=== PATIENT | female | born 1960 | race Caucasian/White ===

== ENCOUNTER 2022-01-21 05:22 | Inpatient (IN) | payer BC ==
[2022-01-14 14:39] LABS: BASOPHILS % (AUTO) 0.3 % (0-1); EOSINOPHILS # (AUTO) 0.1 X10'3 (0-0.9); EOSINOPHILS % (AUTO) 1.4 % (0-6); LYMPHOCYTES # (AUTO) 1.6 X10'3 (1.1-4.8); LYMPHOCYTES % (AUTO) 27.5 % (21-51); MEAN CORPUSCULAR HEMOGLOBIN 27.7 PG (27.0-31.0); MEAN CORPUSCULAR HGB CONC 32.4 g/dL (33.0-36.5); MEAN CORPUSCULAR VOLUME 85.6 FL (78-98); MEAN PLATELET VOLUME 7.1 FL (7.4-10.4); MONOCYTES # (AUTO) 0.5 X10'3 (0-0.9); MONOCYTES % (AUTO) 9.1 % (2-12); NEUTROPHILS # (AUTO) 3.5 X10'3 (1.8-7.7); NEUTROPHILS % (AUTO) 61.7 % (42-75); PRE OP PLATELET COUNT 257 X10'3 (140-440); RED BLOOD COUNT 4.32 X10'6 (4.20-5.60); RED CELL DISTRIBUTION WIDTH 14.9 % (11.5-14.5)
[2022-01-14 14:41] LABS: CLARITY,URINE CLEAR (Clear); COLOR,URINE YELLOW (Yellow); GLUCOSE, URINE NEGATIVE (Neg); KETONES,URINE TRACE mg/dl (Neg); LEUKOCYTE ESTERASE ,URINE NEGATIVE (Neg); NITRITES, URINE NEGATIVE (Neg); OCCULT BLOOD,URINE NEGATIVE (Neg); PH,URINE 5.5 (4.8-8.0); PROTEIN,URINE NEGATIVE (Neg); UROBILINOGEN,URINE 0.2 E.U/dL (0.2-1.0)
[2022-01-14 14:43] LABS: UA COLLECTION TYPE CLN CATCH MIDSTREAM
[2022-01-14 14:54] LABS: ALBUMIN/GLOBULIN RATIO 1.1 (1.1-1.5); ALKALINE PHOSPHATASE 115 IU/L (46-116); BLOOD UREA NITROGEN 17 MG/DL (7-18); BUN/CREATININE RATIO 18.5 (6.6-38.0); CALCIUM 9.6 MG/DL (8.5-10.1); CHLORIDE 105 MMOL/L (99-107); CREATININE 0.92 MG/DL (0.40-0.90); PRE OP ALT 26 U/L (30-65); PRE OP ANION GAP 8 (8-16); PRE OP AST 26 U/L (10-37); PRE OP BILIRUB, TOTAL 0.4 MG/DL (0.0-1.0); PRE OP GLUCOSE 94 MG/DL (70-104); PRE OP POTASSIUM 3.7 MMOL/L (3.4-5.1); PRE OP SODIUM 141 MMOL/L (135-145); TOTAL CARBON DIOXIDE 28.2 MMOL/L (24-32); TOTAL PROTEIN 7.6 G/DL (6.4-8.2); eGFR 61 ML/MIN
[~2022-01-21] VITALS: Ht 162.6 cm; Wt 70.1 kg
[2022-01-21] VITALS (20 sets, daily range): BP systolic 102–160; BP diastolic 58–96
[~2022-01-21 05:22] MED LIST: SERT-434 PO; ringers solution, lacted 1,000 ML IV SCH
[2022-01-21] MEDS ORDERED: ceFAZolin inj. 2,000 MG in dextrose 5%-water 100 ML IV ONE (05:30)
[2022-01-21] MEDS ORDERED: famotidine 20mg tablet PO ONE (05:30)
[2022-01-21] MEDS ORDERED: BUPIVAcaine/PF 2.5mg/ml (0.25%) 10ml vial ONE (06:39)
[2022-01-21] MEDS ORDERED: BUPIVAcaine/PF 5 mg/ml 10ml ONE (07:19)
[2022-01-21] MEDS ORDERED: BUPIVACAINE liposomal/PF 13.3 MG/ML vial IM ONE (07:20)
[2022-01-21] MEDS ORDERED: midazolam 1 mg/ML 2ml injection ONE (07:56)
[2022-01-21] MEDS ORDERED: ringers solution, lacted 1,000 ML IV SCH (08:25)
[2022-01-21] MEDS ORDERED: morphine 2 MG/ML inj. syringe IV PRN (08:25)
[2022-01-21] MEDS ORDERED: HYDROmorphone/PF 0.2 MG/ML SYRINGE IV PRN ×2 (08:25)
[2022-01-21] MEDS ORDERED: proCHLORperazine 10 MG/2 ml inj IV PRN (08:25)
[2022-01-21] MEDS ORDERED: labetalol 20mg/4ml (5mg/ml) syringe IV PRN (08:25)
[2022-01-21] MEDS ORDERED: ketorolac trometh. 30mg/ml inj. IV ONE (08:25)
[2022-01-21] MEDS ORDERED: ondansetron/PF 4mg/2ml inj IV PRN ×2 (08:25→12:30)
[2022-01-21] MEDS ORDERED: meperidine/PF 25mg/ml syringe IV PRN (08:25)
[2022-01-21] MEDS ORDERED: hydrALAZINE 20mg/ml inj. IV PRN (08:25)
[2022-01-21] MEDS ORDERED: acetaminophen 1,000mg/100ml IV 100 ML IV PRN (08:25)
[2022-01-21] MEDS ORDERED: fentaNYL /PF 50mcg/ml 5ml ampule ONE (08:26)
[2022-01-21] MEDS ORDERED: dexamethasone sod phosphate 4mg/ml inj. ONE (08:52)
[2022-01-21] MEDS ORDERED: LIDOcaine 2% (20mg/ml) 5ml vial ONE (08:52)
[2022-01-21] MEDS ORDERED: ondansetron/PF 4mg/2ml inj ONE (08:52)
[2022-01-21] MEDS ORDERED: propofol inj 20 ML IV ONE (08:52)
[2022-01-21] MEDS ORDERED: rocuronium 10mg/ml inj IV ONE ×2 (08:52→11:24)
[2022-01-21] MEDS ORDERED: glycopyrrolate 0.2mg/ml inj ONE (11:23)
[2022-01-21] MEDS ORDERED: neostigmine methylsulfate 1 MG/ML 10ml vial ONE (11:23)
--- NOTE | 2022-01-21 11:37 | NUR ---
RECEIVED PT FROM SURGERY SLEEPY, VITAL SIGNS STABLE, REPORT BY ANESTHESIA MD AND OR NURSE.
--- NOTE | 2022-01-21 12:00 | NUR ---
ABDOMINAL BINDER X [address], LOOSEN AND WOUNDS CHECKED, NO BLEEDING NOTED, PT MEDICATED FOR PAIN WITH GOOD RESULTS
[2022-01-21] MEDS: morphine 4 MG/ML inj SYRINge IV PRN ×2 (12:13→12:20)
--- NOTE | 2022-01-21 12:47 | NUR ---
REPORT GIVEN TO [facility]. PT TRANSPORTED TO FLOOR VIA STRETCHER AND TRASFERRED TO HOSPITAL BED UPON ARRIVAL TO ROOM, ABDOMINAL BINDERS X [address], NO SIGNS OF BLEEDING NOTED, PTS PAIN IS NOW UNDER CONTROL, SISTER NOTIFIED OF PTS TRANSFER OUT OF THE PACU DEPARTMENT
[2022-01-21] MEDS: HYDROcodone/acetaminophen 10/325mg tab PO PRN ×2 (16:20→21:03)
[2022-01-21] MEDS: sod chloride 0.9% 10ml flush syringe IV SCH (16:21)
--- NOTE | 2022-01-21 18:00 | NUR ---
Report received from Mignon perez care of pt.
--- NOTE | 2022-01-21 18:23 | NUR ---
Problems reprioritized. Patient report given, questions answered & plan of care reviewed with Reyna TAVERA.
[2022-01-22] MEDS: HYDROcodone/acetaminophen 10/325mg tab PO PRN ×6 (00:46→21:02)
[2022-01-22 02:00] VITALS: BP 103/52
[2022-01-22 06:00] VITALS: BP 116/56
--- NOTE | 2022-01-22 06:09 | NUR ---
Report to Cintia TAVERA.
[2022-01-22] MEDS: sod chloride 0.9% 10ml flush syringe IV SCH ×3 (08:28→15:26)
[2022-01-22 10:55] VITALS: BP 88/38
[2022-01-22 10:56] VITALS: BP 90/52
[2022-01-22 18:00] VITALS: BP 116/52
--- NOTE | 2022-01-22 18:21 | NUR ---
Problems reprioritized. Patient report given, questions answered & plan of care reviewed with AVI TAVERA.
--- NOTE | 2022-01-22 18:30 | NUR ---
Patient in room [facility]. I have received report from JORGE TAVERA and had the opportunity to ask questions and assume patient care.
[2022-01-22 22:00] VITALS: BP 105/55
[2022-01-23] MEDS: HYDROcodone/acetaminophen 10/325mg tab PO PRN ×4 (01:14→15:54)
--- NOTE | 2022-01-23 06:23 | NUR ---
Problems reprioritized. Patient report given, questions answered & plan of care reviewed with JORGE TAVERA.
[2022-01-23 07:00] VITALS: BP 136/75
[2022-01-23] MEDS: sod chloride 0.9% 10ml flush syringe IV SCH ×3 (07:04→15:32)
[2022-01-23 11:00] VITALS: BP 124/52
--- NOTE | 2022-01-23 16:21 | NUR ---
PATIENT STABLE AND APPROPRIATE FOR DISCHARGE HOME. IV REMOVED. ALL BELONGINGS TAKEN FROM ROOM. DRESSING CHANGED AND ADDITIONAL DRESSING SUPPLIES GIVEN TO PATIENT. ALL DISCHARGE INSTRUCTIONS AND EDUCATION GIVEN AND REVIEWED WITH PATIENT, ALL QUESTIONS ANSWERED. NEW RX CALLED INTO [facility] IN [place] BY DR. ARAUJO STAFF.
== END 2022-01-23 16:19 | disposition home or self-care (01) | DRG 354 ==
LOC: PAS 05:22 → PAS IN 12:34 → SUR 3N 13:07 → OBSVTOIN 01-22 15:00
PROVIDERS: ADMIT Surgery; ATTEND Surgery
PROC: 0WPF4JZ Removal of Synthetic Substitute from Abdominal Wall, Percutaneous Endoscopic Approach (ICD-10-PCS; 2022-01-21)
PROC: 0WQF4ZZ Repair Abdominal Wall, Percutaneous Endoscopic Approach (ICD-10-PCS; principal; 2022-01-21 07:48)
DX: K42.9 Umbilical hernia without obstruction or gangrene (principal); K56.600 Partial intestinal obstruction, unspecified as to cause; K56.7 Ileus, unspecified; Z86.19 Personal history of other infectious and parasitic diseases; Z98.84 Bariatric surgery status
CPT/HCPCS: Z7506; Z7508; 36415; 80053; 81003; 82948; 85025; 93005; A4215; A4618; A6222; A6253; A6449; A7000; C9290; G0378; J0690; J1100; J1885; J2250; J2270; J2405; J2704; J2710; J3010; J3490; J7060; J7120; J7121

== ENCOUNTER 2023-05-06 05:27 | Day surgery (SDC) | payer MEDICARE, BC ==
[2023-04-29 10:25] LABS: BASOPHILS % (AUTO) 0.4 % (0-1); EOSINOPHILS # (AUTO) 0.1 X10'3 (0-0.9); EOSINOPHILS % (AUTO) 1.2 % (0-6); LYMPHOCYTES # (AUTO) 1.2 X10'3 (1.1-4.8); LYMPHOCYTES % (AUTO) 20.6 % (21-51); MEAN CORPUSCULAR HEMOGLOBIN 25.3 PG (27.0-31.0); MEAN CORPUSCULAR HGB CONC 32.1 g/dL (33.0-36.5); MEAN CORPUSCULAR VOLUME 78.8 FL (78-98); MEAN PLATELET VOLUME 7.7 FL (7.4-10.4); MONOCYTES # (AUTO) 0.5 X10'3 (0-0.9); MONOCYTES % (AUTO) 8.5 % (2-12); NEUTROPHILS # (AUTO) 4.1 X10'3 (1.8-7.7); NEUTROPHILS % (AUTO) 69.3 % (42-75); PRE OP HEMATOCRIT 34.5 % (35.0-45.0); PRE OP HEMOGLOBIN 11.1 g/dL (12.0-16.0); PRE OP PLATELET COUNT 284 X10'3 (140-440); PRE OP WHITE BLOOD COUNT 5.9 10'3 (4.8-10.8); RED BLOOD COUNT 4.38 X10'6 (4.20-5.60); RED CELL DISTRIBUTION WIDTH 16.3 % (11.5-14.5)
[2023-04-29 11:40] LABS: ALBUMIN 3.9 G/DL (3.4-5.0); ALBUMIN/GLOBULIN RATIO 1.1 (1.1-1.5); ALKALINE PHOSPHATASE 94 IU/L (46-116); BLOOD UREA NITROGEN 21 MG/DL (7-18); BUN/CREATININE RATIO 22.6 (10.0-20.0); CALCIUM 8.8 MG/DL (8.5-10.1); CHLORIDE 106 MMOL/L (99-107); CREATININE 0.93 MG/DL (0.40-0.90); PRE OP ALT 29 U/L (30-65); PRE OP ANION GAP 10 (8-16); PRE OP AST 28 U/L (10-37); PRE OP BILIRUB, TOTAL 0.7 MG/DL (0.0-1.0); PRE OP GLUCOSE 97 MG/DL (70-104); PRE OP POTASSIUM 4.1 MMOL/L (3.4-5.1); PRE OP SODIUM 142 MMOL/L (135-145); TOTAL CARBON DIOXIDE 26.3 MMOL/L (24-32); TOTAL PROTEIN 7.4 G/DL (6.4-8.2); eGFR 61 ML/MIN
[~2023-05-06] VITALS: Ht 160 cm; Wt 70.0 kg
[2023-05-06] VITALS (12 sets, daily range): BP systolic 120–164; BP diastolic 74–100; PULSE 82–105; RESP 13–18; TEMP 97.7; O2SAT 95–100
[~2023-05-06 05:27] MED LIST changes: +ASPI81TA52 PO; -ringers solution, lacted 1,000 ML IV SCH
[2023-05-06] MEDS: cefazolin 2gm/D5W 100mL 100 ML IV ONE (05:55)
[2023-05-06] MEDS: famotidine 20mg tablet PO ONE (06:03)
[2023-05-06] MEDS: ringers solution, lacted 1,000 ML IV SCH (06:04)
[2023-05-06] MEDS ORDERED: sevoflurane 250ml liquid IH ONE (07:22)
[2023-05-06] MEDS ORDERED: glycopyrrolate 0.2mg/ml inj ONE (07:22)
[2023-05-06] MEDS ORDERED: dexamethasone sod phosphate 10mg/ml inj ONE (07:22)
[2023-05-06] MEDS ORDERED: neostigmine methylsulfate 1 MG/ML 10ml vial ONE (07:22)
[2023-05-06] MEDS ORDERED: fentaNYL /PF 50mcg/ml 5ml ampule ONE (07:26)
[2023-05-06] MEDS ORDERED: midazolam 1 mg/ML 2ml injection ONE (07:26)
[2023-05-06] MEDS ORDERED: LIDOcaine 2% jelly 6ml syringe ***for topical use only ONE (07:28)
[2023-05-06] MEDS ORDERED: LIDOcaine 2% (20mg/ml) 5ml vial ONE (07:29)
[2023-05-06] MEDS ORDERED: propofol inj 20 ML IV ONE (07:29)
[2023-05-06] MEDS ORDERED: BUPIVAcaine/PF 2.5mg/ml (0.25%) 10ml vial ONE (07:55)
[2023-05-06] MEDS: BUPIVACAINE liposomal/PF 13.3 MG/ML vial IM ONE (08:18)
[2023-05-06] MEDS: BUPIVAcaine/PF 2.5mg/ml (0.25%) 10ml vial ONE (08:19)
[2023-05-06] MEDS ORDERED: rocuronium 10mg/ml inj IV ONE (08:34)
[2023-05-06] MEDS ORDERED: ondansetron/PF 4mg/2ml inj ONE (08:34)
[2023-05-06] MEDS ORDERED: ketorolac trometh. 30mg/ml inj. ONE (08:34)
[2023-05-06] MEDS ORDERED: labetalol 20mg/4ml (5mg/ml) syringe IV PRN (08:55)
[2023-05-06] MEDS ORDERED: enalaprilat dihydrate 2.5mg/2ml vial IV PRN (08:55)
[2023-05-06] MEDS ORDERED: ondansetron/PF 4mg/2ml inj IV PRN (08:55)
[2023-05-06] MEDS ORDERED: proCHLORperazine 10 MG/2 ml inj IV PRN (08:55)
[2023-05-06] MEDS ORDERED: meperidine/PF 25mg/ml syringe IV PRN ×2 (08:55)
[2023-05-06] MEDS ORDERED: ringers solution, lacted 1,000 ML IV SCH (08:55)
[2023-05-06] MEDS ORDERED: morphine 2 MG/ML inj. syringe IV PRN (08:55)
[2023-05-06] MEDS ORDERED: acetaminophen 1,000mg/100ml IV 100 ML IV ONE (09:47)
[2023-05-06] MEDS: oxyCODONE/APAP 5-325mg tablet PO PRN (11:08)
[2023-05-06] MEDS: meperidine/PF 25mg/ml syringe IV PRN (11:08)
[2023-05-06] MEDS: morphine 4 MG/ML inj SYRINge IV PRN (11:22)
== END 2023-05-06 11:57 | disposition home or self-care (01) ==
LOC: PAS 05:27
PROVIDERS: ATTEND Surgery
DX: K43.0 Incisional hernia with obstruction, without gangrene (principal); F32.A Depression, unspecified; E66.01 Morbid (severe) obesity due to excess calories; Z68.27 Body mass index [BMI] 27.0-27.9, adult; Z79.82 Long term (current) use of aspirin; Z79.899 Other long term (current) drug therapy; Z98.84 Bariatric surgery status; Z98.890 Other specified postprocedural states
CPT/HCPCS: 36415; 49618; 80053; 82948; 85025; 93005; C1781; C9290; J0131; J0690; J1100; J1885; J2175; J2250; J2270; J2405; J2704; J2710; J3010; J3490; J7030; J7120; Z7506; Z7508; Z7512; A4215; A4618